=== PATIENT | male | born 1965 | race Caucasian/White ===

== ENCOUNTER → 2020-05-25 11:49 | Outpatient (CLI) | payer OTHER, SELFPAY ==
--- NOTE | ~2020-05-25 | XR_ITS ---
EXAMINATION: XR knee RT 2V DATE: 05/25/2020 12:00 INDICATION: Right knee pain. TECHNIQUE: 2 views of right knee were obtained. COMPARISON: Right knee radiographs 03/15/2019 FINDINGS: Bone alignment is normal. No fracture. There is mild tricompartmental osteoarthritis. No kn ee joint effusion. IMPRESSION: 1. Unchanged mild right knee osteoarthritis. Reviewed, dictated and finalized at location B.
== END ==
PROVIDERS: PCP Family Medicine Adolescent Medicine; Visit Provider Physician Assistant
DX: M17.11 Unilateral primary osteoarthritis, right knee (principal)
CPT/HCPCS: 73560

== ENCOUNTER 2020-08-02 03:48 | Outpatient (CLI) | payer OTHER, SELFPAY ==
[2020-08-02 19:05] LABS: SARS-CoV-2 RNA PCR Negative
== END 2020-08-02 03:49 | disposition home or self-care (01) ==
LOC: ANHCOVIDDT 03:48
PROVIDERS: PCP Family Medicine Adolescent Medicine; Visit Provider Surgery
DX: Z01.812 Encounter for preprocedural laboratory examination (principal); Z20.828 Contact with and (suspected) exposure to other viral communicable diseases
CPT/HCPCS: 87635; C9803; U0003

== ENCOUNTER 2020-08-04 00:24 | Day surgery (SDC) | payer OTHER, SELFPAY ==
[2020-07-31 10:07] VITALS: BMI 24.3
[2020-08-04 10:49] VITALS: BP 133/99; PULSE 75; RESP 16; TEMP 36.8; O2SAT 99; BMI 24.3
[2020-08-04] MEDS: LACTATED RINGERS 1,000 ML 150 ML IV CONT (11:01)
--- NOTE | 2020-08-04 11:02 | WPDANESEPPF ---
Anes - Initial Pre Proc Eval Procedure: Operation Date: 08/04/20 12:00 Proposed Procedures p Screening Colonoscopy - Surya Paredes MD Date/Time: 08/04/20 11:02 Surgeon: Surya Paredes MD Pre Op Diagnosis: Neoplasm Screening Patient Data Age: 55 Gender: M Height: 1.78 m Weight: 76.7 kg Last Vital Signs Temp 36.8 C 08/04/20 10:49 Pulse 75 08/04/20 10:49 Resp 16 08/04/20 10:49 BP 133/99 H 08/04/20 10:49 Pulse Ox 99 08/04/20 10:49 Allergies Allergy/AdvReac Type Severity Reaction Status Date / Time adhesive tape Allergy Mild Blister Verified 08/04/20 10:48 Home Medications Medication Instructions Recorded Confirmed Type alprazolam [Xanax] 1 mg PO HS 08/20/19 07/31/20 History trazodone 50 mg PO HS PRN 08/20/19 07/31/20 History meloxicam 15 mg tablet 15 mg PO DAILY 07/13/20 07/31/20 History Patient hx anesthesia problems: none Family hx anesthesia problems: none PMFSH Past Medical History Medical History (Updated 07/13/20 @ 15:04 by Jos Betts MD) BMI 25.0-25.9,adult Colovesical fistula (~07/2019) Depression Diverticulitis large intestine (~05/2019) Elevated LFTs Osteoarthritis of right knee Surgical History Surgical History History of bladder surgery August 2019 History of colon surgery 2018 Previous back surgery 1998 Family History Family History Mother Diabetes mellitus Family history of malignant neoplasm Hypertension Son No problems noted. Sibling Diverticula of colon Other Family history of cardiovascular disease Social History Social History Smoking status: Never smoker Alcohol intake: current Drinks per week: 8 Substance use: never Substance use type: does not use Living arrangements: with family Gender identity (if verbalized by the patient): Male Spiritual care concerns: No Agree to blood products: Yes Anes - Eval Final PreProcedure Day of Procedure 08/04/20 11:02 Patient weight: normal Heart: regular rate and rhythm Lungs: clear to auscultation and normal air movement Airway: Mallampati scale class II Neurological: alert and oriented Last oral intake: >/= 8 hours ASA classification: III Emergent: no Anesthetic plan: proceed Anesthesia type and monitoring: general GIVS Informed Consent: The patient's anesthetic plan and its attendant risks and benefits were discussed with the patient/family/POA. Questions were solicited and answers provided to the satisfaction of the patient/family/POA.
--- NOTE | 2020-08-04 11:10 | PM.HPGS ---
History of Present Illness History of Present Illness Consent: Risks, benefits, and alternatives a screening colonoscopy with possible biopsy, possible polypectomy have been discussed and questions answered. Patient agrees to proceed with procedure. Chief complaint: Neoplasm Screening Narrative: Federico Em is a 55 year old male who has never had a screening colonoscopy. Patient presented to me initially almost a year ago with signs of a colovesical fistula. He did have diverticulitis which caused this. He subsequently after treatment of his urinary tract infection and bowel prep underwent a single stage sigmoid colon resection for diverticulitis with suture repair of his bladder. He did well and now presents for screening colonoscopy. The risks, benefits,and possible complications including that of bleeding, infection, possible low chance (1 in a 1000) of perforation at the time of the colonoscopy have been discussed with the patient and he has undergone a bowel prep. He states that it went well without much nausea. He wishes to proceed at this time. Review of Systems Constitutional: Constitutional: Reports no additional constitutional complaints, Reports fatigue and Denies malaise Eyes: Eyes: Denies change in vision and Denies loss of vision ENT: Reports Normal hearing present, Denies change in voice, Denies dizziness, Denies hoarseness and Denies sore throat Cardiovascular: Cardiovascular: Denies chest pain, Denies leg edema and Denies dyspnea Respiratory: Respiratory: Denies cough, Denies dyspnea and Denies wheezing Gastrointestinal: Gastrointestinal: Denies hematochezia, Denies change in bowel habits and Denies heartburn Comments: He denies recent CIS siting of blood in the stool or any particular problems with bowel movements. Genitourinary: Genitourinary: Denies urinary frequency and Denies urinary incontinence Neurologic: Reports Normal hearing present, Denies confusion, Denies dizziness, Denies loss of vision, Denies memory loss and Denies seizure-like activity Psychiatric: Psychiatric: Denies confusion, Denies depression and Denies memory loss Endocrine: Endocrine: Denies cold intolerance and Reports fatigue Hematologic/Lymphatic: Hematologic/Lymphatic: Denies easy bleeding and Denies easy bruising Allergic/Immunologic: Allergic/Immunologic: Denies wheezing PMFSH Past Medical History Medical History (Updated 08/04/20 @ 11:17 by Surya Paredes MD) BMI 25.0-25.9,adult Colovesical fistula (~07/2019) Depression Diverticulitis large intestine (~05/2019) Elevated LFTs Osteoarthritis of right knee Surgical History Surgical History History of bladder surgery August 2019 History of colon surgery 2018 Previous back surgery 1998 Family History Family History Mother Diabetes mellitus Family history of malignant neoplasm Hypertension Son No problems noted. Sibling Diverticula of colon Other Family history of cardiovascular disease Social History Social History Smoking status: Never smoker Alcohol intake: current Drinks per week: 8 Substance use: never Substance use type: does not use Living arrangements: with family Gender identity (if verbalized by the patient): Male Spiritual care concerns: No Agree to blood products: Yes Meds Home Medications and Allergies Home Medications Medication Instructions Recorded Confirmed Type alprazolam [Xanax] 1 mg PO HS 08/20/19 07/31/20 History trazodone 50 mg PO HS PRN 08/20/19 07/31/20 History meloxicam 15 mg tablet 15 mg PO DAILY 07/13/20 07/31/20 History Allergies Allergy/AdvReac Type Severity Reaction Status Date / Time adhesive tape Allergy Mild Blister Verified 08/04/20 10:48 Vital Signs Vital Signs - 24 hr 08/04/20 10:49
--- NOTE | 2020-08-04 11:47 | WPDHPUPDATE1 ---
History and Physical Update Update Date/Time: 08/04/20 11:47 History and Physical has been reviewed, including an updated exam of the patient. There are NO changes in the patient's condition. Risks, benefits, and alternatives have been discussed and questions answered. Patient agrees to proceed with procedure.
[2020-08-04 12:51] VITALS: BP 95/59; PULSE 68; RESP 12; O2SAT 99
[2020-08-04 13:01] VITALS: BP 100/60; PULSE 64; RESP 12; O2SAT 100
[2020-08-04 13:11] VITALS: BP 109/85; PULSE 70; RESP 13; O2SAT 100
== END 2020-08-04 13:39 | disposition home or self-care (01) ==
PROVIDERS: PCP Family Medicine Adolescent Medicine; Visit Provider Surgery
PROC: 0DJD8ZZ Inspection of Lower Intestinal Tract, Via Natural or Artificial Opening Endoscopic (ICD-10-PCS; CPT 45378; principal; 2020-08-04 12:00)
DX: Z12.11 Encounter for screening for malignant neoplasm of colon (principal); K57.30 Diverticulosis of large intestine without perforation or abscess without bleeding; Z87.19 Personal history of other diseases of the digestive system; F32.9 Major depressive disorder, single episode, unspecified; M17.11 Unilateral primary osteoarthritis, right knee
CPT/HCPCS: 45378; J2704; J7120

== ENCOUNTER 2024-08-09 09:59 | Emergency (ER) | payer OTHER, SELFPAY ==
[2024-08-09 10:07] VITALS: BP 147/91; PULSE 84; RESP 16; TEMP 36.2; O2SAT 97
--- NOTE | 2024-08-09 10:35 | ED_ITS ---
HPI - URI/Sore Throat General Chief Complaint: Upper Respiratory Infection Stated Complaint: cough / sinus pressure Time Seen by Provider: 08/09/24 10:08 Source: patient and RN notes reviewed Mode of arrival: ambulatory Limitations: no limitations History of Present Illness HPI Narrative: Patient presents today complaining of one-week history of cough, nasal congestion, headache, sinus pressure. Symptoms began after he had been outside cutting grass. Denies fever shortness of breath. He has been taking DayQuil and Claritin with mild relief. States he had sinus surgery approximately 3 years ago and found that it was successful. Related Data Home Medications Medication Instructions Recorded Confirmed budesonide-formoterol HFA 80 2 puff inhalation Q12H PRN 02/16/24 08/09/24 mcg-4.5 mcg/actuation aerosol Shortness Of Breath Or Wheezing inhaler (Symbicort) Allergies Allergy/AdvReac Type Severity Reaction Status Date / Time adhesive tape AdvReac Mild Blister Verified 08/09/24 10:01 Review of Systems Review of Systems: CONSTITUTIONAL: Denies body aches, fever, chills, or sweats. EYES: Denies visual changes, redness, or discharge. ENT: Denies rhinorrhea, sore throat, or otalgia.+ congestion, sinus pressure CARDIOVASCULAR: Denies chest pain, palpitations, or edema. RESPIRATORY: Denies dyspnea.+ cough GASTROINTESTINAL: Denies abdominal pain, nausea, vomiting, or diarrhea. GENITOURINARY: Denies dysuria or hematuria. SKIN: Denies rash, itching, or wounds. MUSCULOSKELETAL: Denies back pain, joint pain, or myalgia. NEUROLOGIC: Denies numbness, tingling, or weakness.+ headache PSYCH: Denies depression or anxiety. [facility] Past Medical History Medical History Colovesical fistula (~07/2019) 2018 Depression Diverticulitis large intestine (~05/2019) 2019 Elevated LFTs Osteoarthritis of right knee Surgical History Surgical History History of bladder surgery August 2019 History of colon surgery 2018 History of tonsillectomy Previous back surgery 2000 lumbar L5-S1 fusion Family History Family History Mother Diabetes mellitus Hypertension Depression Sibling Diverticula of colon Hypertension Grandparent Acute myocardial infarction Breast cancer Cerebrovascular accident Family history of cardiovascular disease Family history of malignant neoplasm Heart disease Other Asthma Social History Social History Smoking status: Never smoker Second hand tobacco smoke exposure: No Alcohol intake: current Drinks per week: 8 Alcohol use details: occasional Substance use: never Substance use type: does not use Lack of Transportation: No Lack of Food: Never True Current Housing: I Have Housing Concerned About Future Housing: No Difficulty Paying Gas/Electric Bills: No Difficulty Paying for Meds: No Currently Unemployed: No Education: High School Diploma/GED Difficulty w/ Childcare or Family Care: No Living arrangements: with family Occupation/Education: occupation Gender identity (if verbalized by the patient): Male Sexual Orientation (if Verbalized by the Patient): Straight or Heterosexual Spiritual care concerns: No Agree to blood products: Yes Comments At time of signature, I have reviewed and agree with nursing past medical, surgical, social and family history unless otherwise noted. Please see nursing chart for further information. There is no relevant family history pertinent to the presenting complaint Exam Narrative: GENERAL: Well-appearing, well-nourished, and in no acute distress. HEAD: Normocephalic, atraumatic. EYES: EOMI. No redness or drainage. Conjunctivae normal. ENT: Mucous membranes pink and moist. Nares mildly congested. No rhinorrhea. TMs normal bilaterally. Throat normal. Uvula midline. NECK: Normal AROM. Supple. No lymphadenopathy. CHEST: No respiratory distress. Mild expiratory wheezes throughout. HEART: Regular rate and rhythm. No murmur appreciated. EXTREMITIES: Normal range of motion. No edema. SKIN: Warm, dry, no rash. Capillary refill normal. Normal skin turgor. NEURO: No focal deficits. Alert and oriented x3. Gait steady. PSYCH: Normal affect. No signs of depression or anxiety. Course Course Level of Care: Express Care Visit Vital Signs Vital signs: Vital Signs Temperature 97.2 F L 08/09/24 10:07 Pulse Rate 84 08/09/24 10:07 Respiratory Rate 16 08/09/24 10:07 Blood Pressure 147/91 H 08/09/24 10:07 Pulse Oximetry 97 08/09/24 10:07 Oxygen Delivery Room Air 08/09/24 10:07 Temperature 97.2 F L 08/09/24 10:07 Pulse Rate 84 08/09/24 10:07 Respiratory Rate 16 08/09/24 10:07 Blood Pressure 147/91 H 08/09/24 10:07 Pulse Oximetry 97 08/09/24 10:07 Oxygen Delivery Room Air 08/09/24 10:07 Reviewed MDM - URI/Sore Throat MDM Narrative Medical decision making narrative: Patient has some mild expiratory wheezes, but no rhonchi or crackling noted. Symptoms likely related to environmental allergies causing symptoms. No other bacterial etiology identified. Will treat patient with a course of steroids and an albuterol inhaler. Discussed also using Flonase and Mucinex. Anticipatory guidance given. Differential Diagnosis Differential diagnosis: Likely upper respiratory infection, sinusitis, viral infection, bronchitis and other (Allergies, pneumonia) Critical Care Time Critical Care Time Critical Care Time: No Discharge Plan Discharge Clinical Impression: Bronchitis, Environmental allergies Patient Disposition: Home, Self-Care Condition: Stable Instructions: Acute Bronchitis (ED) Additional Instructions: Please take the prednisone and use albuterol inhaler as directed. Also consider starting some Mucinex to help break up your chest congestion. Saline nasal spray can also be helpful. Follow-up with your PCP next week if symptoms persist, sooner if symptoms worsen. Your blood pressure was elevated above 120/80 today at Urgent Care. This puts you above the threshold for follow up. Please schedule a followup visit with your personal physician as soon as possible, for further evaluation and treatment. Even blood pressure exceeding 120/80 may indicate pre-hypertension. Prescriptions: New prednisone 50 mg tablet 50 mg PO DAILY 5 Days Qty: 5 0RF albuterol sulfate 90 mcg/actuation HFA aerosol inhaler 2 inh inhalation Q4-6H PRN (Reason: shortness of breath or wheezing) Qty: 8.5 0RF (DME) BreatheRite MDI Spacer Spacer See Rx Instructions .ROUTE .MEDSUPPLY Qty: 1 0RF Rx Instructions: As directed No Action budesonide-formoterol [Symbicort] 80-4.5 mcg/actuation HFA aerosol inhaler 2 puff inhalation Q12H PRN (Reason: Shortness Of Breath Or Wheezing) Rx Instructions: 2 puffs twice daily and up to every 4hours as needed for wheezing/cough pantoprazole 40 mg tablet,delayed release (DR/EC) See Rx Instructions .ROUTE .COMPLEX Qty: 90 3RF Dose Instruction: TAKE 1 TABLET EVERY MORNING Rx Instructions: TAKE 1 TABLET EVERY MORNING trazodone 100 mg tablet 100 mg PO QHS Qty: 90 3RF buspirone 10 mg tablet 10 mg PO BID Qty: 60 6RF indomethacin 50 mg capsule See Rx Instructions .ROUTE .COMPLEX Qty: 270 3RF Dose Instruction: TAKE 1 CAPSULE THREE TIMES A DAY NEEDED FOR JOINT PAIN WITH FOOD OR MILK Rx Instructions: TAKE 1 CAPSULE THREE TIMES A DAY NEEDED FOR JOINT PAIN WITH FOOD OR MILK escitalopram oxalate 20 mg tablet 20 mg PO DAILY Qty: 90 2RF fluticasone propionate 50 mcg/actuation spray,suspension See Rx Instructions .ROUTE .COMPLEX Qty: 48 3RF Dose Instruction: SHAKE LIQUID AND USE 2 SPRAYS IN EACH NOSTRIL DAILY Rx Instructions: SHAKE LIQUID AND USE 2 SPRAYS IN EACH NOSTRIL DAILY alprazolam [Xanax] 1 mg tablet 1 mg PO HS Qty: 90 1RF Follow-up/Referrals: Ramos Medrano MD [Primary Care Provider] - Time of Disposition: 10:31
== END 2024-08-09 10:33 | disposition home or self-care (01) ==
PROVIDERS: Emergency Provider Nurse Practitioner; PCP Family Medicine Adolescent Medicine
DX: J40 Bronchitis, not specified as acute or chronic (principal); J30.2 Other seasonal allergic rhinitis; M17.11 Unilateral primary osteoarthritis, right knee
CPT/HCPCS: 99213; G0463

== ENCOUNTER 2025-04-11 10:05 | Outpatient (CLI) | payer OTHER, SELFPAY ==
--- NOTE | 2025-05-02 12:01 | P.SLEEP_ITS ---
Sleep Study Date of Study: 04/11/25 Ordering Provider: Dre Hubbard APRN Interpreting Physician: Shreya Ramey MD Sleep Study Type: Split Polysomnogram Height: 1.75 m Weight: 81.647 kg Body Mass Index: 26.6 Neck Circumference (inches): 16 [place]: 18 Reason for Sleep Study Hypersomnolence Sleep History Federico Em is a 59-year-old man with obstructive sleep apnea, has been on treatment 6 years, most recently has been on APAP 7-12 which showed reduced compliance with leaks and an elevated AHI of 48, majority obstructive apneas. For this reason, he is here for a split night study. He frequently awakens at night from sleep short of breath. He rarely awakens at night with heartburn, belching, or coughing. He frequently snores, and it is loud enough that others complain. He frequently has trouble sleeping when he has a cold. He frequently wakes up gasping for air at night. He frequently has breathing problems at night observed by others. He occasionally sweats excessively at night. He occasionally has heart palpitations at night. He frequently falls asleep during the day but never while driving. He occasionally experiences loss of muscle tone with strong emotion. He frequently has daytime difficulty due to excessive daytime sleepiness. He does not have the feeling of paralysis on falling asleep or upon awakening. He rarely experiences vivid dreamlike scenes upon awakening or falling asleep. He is not afraid to go to sleep. He does not have nightmares. He rarely remembers his dreams. He frequently has thoughts racing through his mind. He rarely feels sad or depressed. He frequently has anxiety. He occasionally has muscular tension. He occasionally notices parts of his body jerk. He rarely kicks during the night. He denies having crawling and aching feelings in his legs but occasionally has leg pain during the night. He rarely grinds his teeth during sleep but never awakens with morning jaw pain. He is frequently bothered by pain during the day and occasionally awakened by pain during the night. He frequently wakes up feeling stiff in the morning. He occasionally wakes up with sore or achy muscles. He occasionally wakes up with pain in the neck, spine, and other joints. Normal bedtime is 8:30 p.m. on weekdays and at 11 p.m. on the weekends. It takes him a few minutes to fall asleep. He wakes up 2 to 3 times throughout the night to adjust his position or urinate, and he is able to return to sleep immediately. He wakes up at 3:30 a.m. on weekdays and at 10 a.m. on the weekends. He typically gets 5 to 6 hours of sleep per night. He currently lives alone. He takes naps in the afternoon or the evening, but a short nap lasting 10-15 minutes is not refreshing. Habits:??Tobacco: none Caffeine: 2 per day Alcohol: on weekends Recreational substances: none PMF Past Medical History Medical History Obstructive sleep apnea (adult) (pediatric) (~07/2020) Osteoarthritis of right knee Elevated LFTs Depression Colovesical fistula (~07/2019) 2018 Diverticulitis large intestine (~05/2019) 2018 Surgical History Surgical History History of tonsillectomy Previous back surgery 1999 lumbar L5-S1 fusion History of bladder surgery August 2019 History of colon surgery Novemebr 2018 Family History Family History Mother Diabetes mellitus Hypertension Depression Sibling Diverticula of colon Hypertension Grandparent Acute myocardial infarction Breast cancer Cerebrovascular accident Family history of cardiovascular disease Family history of malignant neoplasm Heart disease Other Asthma Social History Social History Smoking status: Never smoker Second hand tobacco smoke exposure: No Alcohol intake: current Drinks per week: 8 Alcohol use details: occasional Substance use: never Substance use type: does not use Lack of Transportation: No Lack of Food: Never True Current Housing: I Have Housing Concerned About Future Housing: No Difficulty Paying Gas/Electric Bills: No Difficulty Paying for Meds: No Currently Unemployed: No Education: High School Diploma/GED Difficulty w/ Childcare or Family Care: No Living arrangements: with family Occupation/Education: occupation Gender identity (if verbalized by the patient): Male Sexual Orientation (if Verbalized by the Patient): Straight or Heterosexual Spiritual care concerns: No Agree to blood products: Yes Medications Home Medications ?Medication ?Instructions ?Recorded ?Confirmed ?Type budesonide-formoterol HFA 80 2 puff inhalation Q12H PRN 02/16/24 09/03/24 Hist ory mcg-4.5 mcg/actuation aerosol Shortness Of Breath Or Wheezing inhaler (Symbicort) trazodone 100 mg tablet 100 mg PO QHS #90 tabs 04/14/24 09/03/24 Rx buspirone 10 mg tablet 10 mg PO BID #60 tabs 06/21/24 09/03/24 Rx indomethacin 50 mg capsule See Rx Instructions .Route 08/03/24 09/03/24 Rx .COMPLEX #270 caps escitalopram oxalate 20 mg tablet 20 mg PO DAILY #90 tabs 08/06/24 09/03/24 Rx fluticasone propionate 50 See Rx Instructions .Route 08/06/24 09/03/24 Rx mcg/actuation nasal .COMPLEX #48 grams spray,suspension inhalational spacing device #1 ea 08/09/24 09/03/24 Rx (BreatheRite MDI Spacer) benzonatate 200 mg capsule 200 mg PO TID PRN cough #20 caps 08/12/24 09/03/24 Rx pantoprazole 40 mg tablet,delayed See Rx Instructions .Route 12/24/24 Rx release .COMPLEX #90 tabs eszopiclone 2 mg tablet 2 mg PO ONCE #1 tablet 03/24/25 Rx alprazolam 1 mg tablet (Xanax) 1 mg PO HS #90 tabs 05/13/25 Rx Sleep Procedure A split night polysomnogram using the [employer] multi-channel system recorded the standard physiologic parameters including EEG, EOG, submentalis EMG, anterior tibialis EMG, EKG, body position, nasal and oral airflow using nasal pressure sensor and thermistor. Respiratory parameters of chest and abdominal movements were recorded with Respiratory Inductance Plethysmography belts. Oxygen saturation was recorded by pulse oximetry. Video monitoring was also performed. Sleep stages, periodic limb movements, and EEG arousals were scored in 30 second epochs according to the criteria of the AASM Scoring Manual. The Apnea-Hypopnea Index was calculated using CMS guidelines for definition of hypopnea while scoring respiratory events. The patient self-administered Lunesta 2 mg at the start of the study. After the baseline portion the patient met criteria for a titration with an AHI of 105.4 using 3% criteria and desaturation to 82%. He wore the same mask that he wears at home, a medium Resmed Airfit F30i full face mask with heated humidity, started titration at CPAP 5 cm, increased to 7 cm, 9, 11, 13, 15, 17, 19 cm, EPR was added to 19 cm with central apneas in supine REM. He was switched to BiPAP 20/16, this was decreased to 19/15. During the night there were problems with the head box and the computer not connecting to the network, and made is, the sleep software and hardware provider, was, contacted. The study continued. At BiPAP 19/15, the patient spent 91 minutes in bed, 1 minute awake, 31.5 minutes in non-REM and 58.5 minutes in REM. The sleep efficiency was 98.9% and the residual apnea-hypopnea index was 21.3 however all of these events were due to treatment emergent centrals. These will disappear with routine treatment. The lowest saturation was 92%. He had supine REM. Sleep was well consolidated. BiPAP 19/15 is the optimal pressure. Treatment emergent centrals appeared at CPAP 19, CPAP with EPR 19/3, and both bilevel pressures. Treatment emergent centrals generally resolved with routine treatment using PAP therapy. Sleep Architecture During the diagnostic portion of the study, the total recording time was 235.6 minutes. The total sleep time was 119 minutes. Sleep latency was 15.6 minutes. There was no REM, therefore no REM latency. Sleep Efficiency was 50.4%. The patient had 36 awakenings for an awakening index of 16.8. Wake after sleep onset time was 101 minutes. The patient spent 52.5 minutes, 44.1% of total sleep time in Stage N1. The patient spent 66.5 minutes, 55.9% in Stage N2. The patient spent no time in Stage N3 or Stage REM sleep. At 01:53:27 AM the patient was placed on PAP treatment, was titrated at pressures ranging from CPAP 5 cm to 17 and BiPAP 20/16, then 19/15. During the treatment portion of the study, the total recording time was 276 minutes. The total sleep time was 252 minutes. Sleep latency was 1.0 minute. REM latency was 133 minutes. Sleep Efficiency was 91.3%. Wake after Sleep Onset time was 23 minutes. The patient spent 29 minutes, 11.5% of total sleep time in Stage N1. The patient spent 113.5 minutes, 45% in Stage N2. The patient spent no time in Stage N3. The patient spent 109.5 minutes, 43.5% in Stage REM. Respiratory Analysis During the diagnostic portion of the study, using 3% criteria, the patient had 13 hypopneas, 179 obstructive apneas, 16 mixed apneas, and 1 central apnea for an overall Apnea Hypopnea Index of 105.4 events per hour. The apnea index was 98.8. Using a 4% criteria the apnea-hypopnea index was 104.9. There were no at respiratory effort related arousals. The respiratory disturbance index is 105.4 events per hour. The REM Apnea Hypopnea Index was 0 as he had no REM on the baseline. The NREM Apnea Hypopnea Index was 105.4. The patient had a Central Apnea Hypopnea Index of 0.5. There were no Respiratory Effort Related Arousals. The Respiratory Disturbance Index is 105.5 events per hour. There was no evidence of Fransisco-Whipple Respirations. During the treatment portion of the study, using 3% criteria, the patient had 85 hypopneas, 80 obstructive apneas, 9 mixed apneas, and 66 central apneas for an overall Apnea Hypopnea Index of 57.1 events per hour. Using a 4% criteria the apnea-hypopnea index was 56.4. The REM Apnea Hypopnea Index was 36.3. The NREM Apnea Hypopnea Index was 72. The patient had a Central Apnea Hypopnea Index of 15.7. There were no Respiratory Effort Related Arousals. There was no evidence of Fransisco-Whipple Respirations. Arousals During the diagnostic portion of the study, there were a total of 176 arousals for an arousal index of 88.7. There were 172 respiratory arousals for an index of 86.7. There were no periodic limb movement arousals. There were 8 isolated limb movement arousals for an index of 4.0. There were 4 spontaneous arousals for an index of 2.0. During the treatment portion of the study, there were a total of 145 arousals for an index of 34.5. There were 131 respiratory arousals for an index of 31.2. There were no periodic limb movement arousals. There were 2 isolated limb movement arousals for an index of 0.5. There were 12 spontaneous arousals for an index of 2.9. Periodic Limb Movements During the diagnostic portion of the study, the patient had 22 isolated limb movements with an index of 10.3. The patient had 10 periodic limb movements with an index of 4.7. The patient had a total of 32 limb movements with a total limb movement index of 14.9. During the treatment portion of the study, the patient had 42 isolated limb movements with an index of 9.4. The patient had 25 periodic limb movements with an index of 5.6. The patient had a total of 67 limb movements with a total limb movement index of 15.1. Oximetry Data During the diagnostic portion of the study, the patient had an average oxygen saturation of 91.6% in wake with a minimum oxygen saturation of 82% and a maximum oxygen saturation of 98%. The patient had an average oxygen saturation of 89.7% in sleep with a minimum oxygen saturation of 80% and a maximum oxygen saturation of 96%. The patient had 198 oxygen desaturations resulting in an Oxygen Desaturation Index of 92.5. The patient spent 54.9 minutes, 23.5% of total sleep time with an oxygen saturation less than 88%. During the treatment portion of the study, the patient had an average oxygen saturation of 91% in wake with a minimum oxygen saturation of 83% and a maximum oxygen saturation of 97%. The patient had an average oxygen saturation of 92.4% in sleep with a minimum oxygen saturation of 82% and a maximum oxygen saturation of 97%. The patient had 162 oxygen desaturations resulting in an Oxygen Desaturation Index of 36.4. The patient spent 34.9 minutes, 12.6% of total sleep time with an oxygen saturation less than 88%. Snoring Profile Snoring was mild, intermittent, and eliminated during the titration. Cardiac Profile During the diagnostic portion of the study, the EKG showed normal sinus rhythm. The average pulse rate was 66.0 bpm, minimum pulse rate was 42 bpm, and the maximum pulse rate was 101 bpm. No arrhythmias noted. During the treatment portion of the study, the EKG showed normal sinus rhythm. The average pulse rate was 64.5 bpm. The minimum pulse rate was 52 bpm. The maximum pulse rate was 85 bpm. No arrhythmias noted. EEG Profile Unremarkable, no evidence of seizures. Assessment and Plan Assessment and Plan (1) Obstructive sleep apnea (adult) (pediatric): Onset Date: ~07/2020 Code(s): G47.33 - Obstructive sleep apnea (adult) (pediatric) Status: Acute Assessment and Plan: This split night sleep study on 04/11/2025 shows extremely severe obstructive sleep apnea, the baseline apnea-hypopnea index was 92.9 with desaturation to 80%, improved during the titration using a medium Resmed Airfit F30i full face mask with heated humidity with a recommended pressure of BiPAP 19/15. At BiPAP 19/15, the patient spent 91 minutes in bed, 1 minute awake, 31.5 minutes in non- REM and 58.5 minutes in REM. The sleep efficiency was 98.9% and the residual apnea-hypopnea index was 21.3 however all of these events were due to treatment emergent centrals. These will disappear with routine treatment. The lowest saturation was 92%. He had supine REM. Sleep was well consolidated. The pa tient should be prescribed this ResMed equipment as well as tubing, filters and reservoir. This should be used with all episodes of sleep. Compliance should be reviewed within 31-90 days of starting therapy for usage greater than 4 hours per night greater than 70% of the nights. The patient should be asked about symptoms such as excessive daytime sleepiness, quality of sleep, decreased nocturia, increased mental functioning such as memory, mood, and concentration. Data The data obtained during this sleep study is adequate for interpretation. Certification This sleep study has been reviewed by a board certified sleep medicine physician.
[2025-05-16 10:50] VITALS: BMI 26.6
== END 2025-04-12 06:52 | disposition home or self-care (01) ==
LOC: ANHCSM 10:06
PROVIDERS: PCP Family Medicine Adolescent Medicine; Visit Provider Nurse Practitioner Family
DX: G47.33 Obstructive sleep apnea (adult) (pediatric) (principal)
CPT/HCPCS: 95811